=== PATIENT | male | born 1960 | race Caucasian/White ===

== ENCOUNTER 2017-02-21 09:33 | Day surgery (SDC) | payer BC ==
[2017-02-20 15:51] VITALS: BMI 26.6
[~2017-02-21] VITALS: Ht 177.8 cm; Wt 84.3 kg
[2017-02-21] VITALS (18 sets, daily range): BP systolic 121–162; BP diastolic 68–94; PULSE 65–84; RESP 10–18; Ht 177.8 cm; Wt 84.3 kg
[2017-02-21] MEDS ORDERED: NEOSTIGMINE 3 MG/3 ML SYRINGE ONE (12:01)
[2017-02-21] MEDS ORDERED: PROPOFOL 20 ML ONE (12:01)
[2017-02-21] MEDS ORDERED: CEFAZOLIN 1 GM INJ ONE (12:01)
[2017-02-21] MEDS ORDERED: GLYCOPYRROLATE 0.4 MG INJ ONE (12:01)
[2017-02-21] MEDS ORDERED: ROCURONIUM 50 MG INJ ONE (12:01)
[2017-02-21] MEDS ORDERED: ROPIVACAINE 0.5 % 30 ML VIAL ONE ×2 (12:02→12:51)
[2017-02-21] MEDS ORDERED: DEXAMETHASONE 4 MG/ML 1 ML INJ ONE (12:02)
[2017-02-21] MEDS ORDERED: ONDANSETRON 4 MG INJ ONE (12:02)
[2017-02-21] MEDS ORDERED: FENTAnyl 50 MCG/ML VIAL ONE (12:02)
[2017-02-21] MEDS ORDERED: MIDAZOLAM 1 MG/ML 2 ML INJ ONE (12:02)
--- NOTE | 2017-02-21 12:43 | HPN ---
Date/Time of Note Date/Time of Note DATE: 02/21/17 TIME: 12:43 Interval H&P Admission Note Pt. seen H&P reviewed: No system changes CHRISTY MANDUJANO MD February 21, 2017 12:43
[2017-02-21] MEDS ORDERED: BUPIVACAINE 0.5%/EPI (SDV) 30 ML INJ ONE (12:57)
[2017-02-21] MEDS ORDERED: FENTAnyl 50 MCG/ML VIAL IV PRN ×3 (14:00)
[2017-02-21] MEDS ORDERED: MIDAZOLAM 1 MG/ML 2 ML INJ IV PRN (14:00)
[2017-02-21] MEDS ORDERED: ONDANSETRON 4 MG INJ IV PRN (14:00)
[2017-02-21] MEDS ORDERED: HYDROmorphONE (0.2 MG/ML) 10ML SYG IV PRN ×3 (14:00)
[2017-02-21] MEDS ORDERED: hydrALAzine 20 MG INJ IV PRN (14:00)
[2017-02-21] MEDS ORDERED: MEPERIDINE 25 MG INJ IV PRN (14:00)
[2017-02-21] MEDS ORDERED: EPHEDrine SULFATE 50 MG/5 ML SYG IV PRN (14:00)
[2017-02-21] MEDS ORDERED: DIPHENHYDRAMINE 50 MG INJ IV PRN (14:00)
[2017-02-21] MEDS ORDERED: LABETALOL HCL 20MG INJ IV PRN (14:00)
[2017-02-21] MEDS ORDERED: TRIMETHOBENZAMIDE 100 MG/ML VIAL IM PRN (14:00)
[2017-02-21] MEDS ORDERED: HYDROCODONE/APAP (10/325) TAB GTB PRN (16:00)
[2017-02-21] MEDS ORDERED: morphine 2 MG INJ IV PRN (16:00)
--- NOTE | 2017-02-21 17:29 | RADRPT ---
PROCEDURE: Intraoperative imaging of the left elbow with fluoroscopy. CLINICAL INDICATION: Left elbow pain. Intraoperative. TECHNIQUE: 20 images of the left elbow were obtained in the operating room with an image intensifi er. No radiologist was in attendance. Fluoroscopy time is unavailable. COMPARISON: No prior study is available for comparison. FINDINGS: Images demonstrate surgical instruments overlying the left elbow and surgical material in the proxim al shaft of the left radius. IMPRESSION: 1. Intraoperative imaging of the left elbow. RPTAT: QQ .Hugh Nichols MD, MD Date Time Electronically viewed and signed by .Hugh Nichols MD, MD on 02/21/2017 17:29 .R/
== END 2017-02-21 18:45 | disposition home or self-care (01) ==
LOC: SDS 09:33
PROVIDERS: ATTEND Specialist
DX: S46.212A Strain of muscle, fascia and tendon of other parts of biceps, left arm, initial encounter (principal); X58.XXXA Exposure to other specified factors, initial encounter; Y92.89 Other specified places as the place of occurrence of the external cause
CPT/HCPCS: 24301; 73070; J0690; J1100; J2250; J2405; J2710; J2795; J3010